=== PATIENT | female | born 1990 | race Caucasian/White ===

== ENCOUNTER 2020-04-09 10:06 | Emergency (ER) | payer SELFPAY ==
--- NOTE | 2020-04-09 10:10 | ED.URI ---
HPI - URI/Sore Throat General Chief Complaint: Nausea/Vomiting/Diarrhea Stated Complaint: flu symptoms Time Seen by Provider: 04/09/20 10:11 Source: patient and RN notes reviewed History of Present Illness HPI Narrative: Patient is a 29-year-old female who presents the urgent care with complaints of flulike symptoms . Patient states that she woke up this morning with chills, sweats, body aches, fatigue and vomiting. Patient denies of any known fever. States that she is not currently having abdominal pain. Reports of the last meal being at homemade chili. Patient states that she has been having family issues and slept outside this past weekend. Patient states she is also frequented bars in which patrons were not wearing any masks or taking any precautions. Patient currently appears to be under the influence but denies of any drug or alcohol abuse at this time. Patient's main concern is missing court and needing an excuse . Patient seems to be anxious. Denies of any upper respiratory complaints. No other acute complaints. Patient aware of the plan of care. Some parts of this dictation were generated by voice recognition software and may contain typographical and/or grammatical inaccuracies. Related Data Allergies Allergy/AdvReac Type Severity Reaction Status Date / Time No Known Allergies Allergy Verified 04/09/20 10:24 Review of Systems Review of Systems: Narrative: CONSTITUTIONAL: Reports of chills and sweats EYES: Denies visual changes, redness, or discharge. ENT: Denies rhinorrhea, congestion, sore throat, or otalgia. CARDIOVASCULAR: Denies chest pain, palpitations, or edema. RESPIRATORY: Denies cough or dyspnea. GASTROINTESTINAL: Reports of vomiting and nausea without diarrhea or abdominal pain GENITOURINARY: Denies dysuria or hematuria. SKIN: Denies rash or itching. MUSCULOSKELETAL: Reports of body aches NEUROLOGIC: Denies headache, numbness, or weakness. All other systems reviewed are negative, except as documented in HPI. PMFSH Comments At the time of my signature, I reviewed and agree with the nursing past medical, surgical, social, and family history. There is no relevant family history pertinent to the patient complaint. Exam Narrative: Exam Narrative: GENERAL: This is a well-nourished, well-developed patient, appears stressed and anxious HEAD: normocephalic, atraumatic. EYES: PERRL. Sclera clear/white. Vision is grossly intact. EARS: External ears normal, auditory canals clear and without drainage, TMs normal without perforation. Hearing grossly intact. NOSE: External nose normal with no obvious nasal discharge, nares without redness, no rhinorrhea. THROAT: Mucous membranes moist, posterior pharynx clear. Mild postnasal drainage NECK: Neck supple CARDIOVASCULAR: Regular rate and rhythm without murmurs, gallops, or rubs. RESPIRATORY: Clear to auscultation. Breath sounds equal bilaterally. No wheezes, rales, or rhonchi. GASTROINTESTINAL: Abdomen soft, non-tender, nondistended. Bowel sounds are active. SKIN: warm, intact with no suspicious lesions or rash, good texture and turgor. NEURO: awake, alert, and oriented to person, place and time. There were no obvious focal neurologic abnormalities. EXTREMITIES: No clubbing, cyanosis, or edema. Course Vital Signs Vital signs: Vital Signs Temperature 98.1 F 04/09/20 10:15 Pulse Rate 100 04/09/20 10:15 Respiratory Rate 04/09/20 10:15 Blood Pressure 126/90 04/09/20 10:15 Pulse Oximetry 100 04/09/20 10:15 Temperature 98.1 F 04/09/20 10:15 Pulse Rate 100 04/09/20 10:15 Respiratory Rate 04/09/20 10:15 Blood Pressure 126/90 04/09/20 10:15 Pulse Oximetry 100 04/09/20 10:15 reviewed MDM - URI/Sore Throat MDM Narrative Medical decision making narrative: Reviewed lab results with the patient. She is aware that strep and flu swab are both negative. Educated patient on culture and we will call if strep swab is positive and
[2020-04-09 10:15] VITALS: BP 126/90; PULSE 100; RESP 20; TEMP 36.7; O2SAT 100
== END 2020-04-09 10:45 | disposition home or self-care (01) ==
PROVIDERS: Emergency Provider Nurse Practitioner Family
DX: R52 Pain, unspecified (principal); R11.2 Nausea with vomiting, unspecified
CPT/HCPCS: 87081; 87804; 87880; 99213; G0463

== ENCOUNTER 2022-05-15 14:55 | Emergency (ER) | payer OTHER, SELFPAY ==
[2022-05-15 15:03] VITALS: BP 134/112; PULSE 83; RESP 20; TEMP 35.5; O2SAT 98
--- NOTE | 2022-05-15 16:11 | ED.GENADULT ---
HPI - General Adult General Chief complaint: [facility] Stated complaint: STD Exposure Time Seen by Provider: 05/15/22 16:11 Source: patient, RN notes reviewed and old records reviewed Mode of arrival: ambulatory Limitations: no limitations History of Present Illness HPI narrative: 32 year old female who present to [facility] care with complaints of being exposed to STD's and wanting testing and treatment. Patient reports that she was notified by partner that they had tested positive for STDs and that she should be treated. Patient states that she was in [facility] in past and she didn't have any further refills for her mediations so she has not been taking medications for her anxiety and depression. Patient reports that she is suppose to have an assessment at [facility] tomorrow. Patient reports that she is homeless states that her friend is going to let her stay with her tonight and take her for her appointment tomorrow. Patient states that she does have some yellow vaginal discharge with odor. Patient denies any fevers chills or sweats, reports no urinary burning or pain. Patient reports that she had unprotected sex about 2 months ago. MD complaint: reports exposure to STD Treatments prior to arrival: none Related Data Allergies Allergy/AdvReac Type Severity Reaction Status Date / Time No Known Allergies Allergy Verified 05/15/22 16:17 Review of Systems Review of Systems: CONSTITUTIONAL: Denies fever, chills, or sweats. EYES: Denies visual changes, redness, or discharge. ENT: Denies rhinorrhea, congestion, sore throat, or otalgia. CARDIOVASCULAR: Denies chest pain, palpitations, or edema. RESPIRATORY: Denies cough or dyspnea. GASTROINTESTINAL: Denies abdominal pain, nausea, vomiting, or diarrhea. GENITOURINARY: Denies dysuria or hematuria.reports yellow foul vaginal discharge SKIN: Denies rash or itching. MUSCULOSKELETAL: Denies back pain, joint pain, or myalgia. NEUROLOGIC: Denies headache, numbness, or weakness. PSYCHIATRIC: Positive for anxiety or depression. All systems reviewed & are unremarkable except as noted in HPI and below PMFSH Past Medical History Medical History (Updated 05/22/22 @ 09:15 by Rosalie Ayres NP) Anxiety and depression Previous known suicide attempt in [facility] 4 months ago Social History Social History (Updated 05/22/22 @ 09:13 by Rosalie Ayers NP) Smoking packs per day: 1 Smoking cigarettes per day: 20.0 Years smoked: 15 Smoking pack-years: 15.00 Smoking status: Current every day smoker Tobacco type: cigarettes Alcohol intake: unknown Substance use: current Substance use type: marijuana Additional living arrangements comments: reports homeless Gender identity (if verbalized by the patient): Female Comments At time of signature, agree with nursing past medical, surgical, social and family history. There is no relevant family history pertinent to the presenting complaint Exam Narrative: GENERAL: Well-appearing, well-nourished, and in no acute distress.appears clean and well kept HEAD: Normocephalic, atraumatic. EYES: PERRLA and EOMI. ENT: Nares clear, no rhinorrhea or epistaxis. Mucous membranes moist.TM's normal, throat pink with no exudate or lesions NECK: Supple.no lymphadenopathy CHEST: Clear to auscultation. No respiratory distress.SAO2 98% on room air HEART: Regular rate and rhythm. No murmur heard. Normal peripheral pulses. ABDOMEN: Soft, nontender, nondistended, normal active bowel sounds.Denies any CVA tenderness or pelvic discomfort EXTREMITIES: Normal range of motion. No edema. SKIN: Warm, dry, no rash. NEURO: No focal deficits. Alert and oriented x3. Course Course Emergency Course: Patient is aware of diagnosis, understands and agrees to treatment plan.? Anticipatory guidance given.? Patient agrees to follow-up as directed and is aware of reasons to seek care at the emergency department. Portions of this record may have been created with voice recogniti
[2022-05-15] MEDS: cefTRIAXone 500 MG, LIDOCAINE HCL 1% LOCAL INJ 1 ML IM (16:47)
[2022-05-15 17:10] VITALS: BP 132/102
== END 2022-05-15 17:10 | disposition home or self-care (01) ==
PROVIDERS: Emergency Provider Registered Nurse
DX: Z20.2 Contact with and (suspected) exposure to infections with a predominantly sexual mode of transmission (principal)
CPT/HCPCS: 87491; 87591; 87661; 96372; 99214; G0463; J0696